=== PATIENT | female | born 1970 | race African-American/Black ===

== ENCOUNTER 2016-08-07 18:22 | Emergency (ER) | payer MEDICAID ==
[~2016-08-07] VITALS: Ht 162.6 cm; Wt 73.0 kg
[~2016-08-07 18:22] MED LIST: TRAMADOL
[2016-08-07 21:32] LABS: CLARITY URINE CLEAR (CLEAR); COLOR URINE YELLOW (YELLOW); GLUCOSE URINE NEGATIVE (NEGATIVE); KETONES URINE NEGATIVE (NEGATIVE); LEUKOCYTE ESTERASE URINE 2+ (NEGATIVE); NITRITE URINE POSITIVE (NEGATIVE); OCCULT BLOOD URINE NEGATIVE (NEGATIVE); PH URINE >=9.0 (4.5-8.0); PROTEIN URINE NEGATIVE (NEGATIVE); SPECIFIC GRAVITY URINE 1.021 (1.005-1.030)
[2016-08-07] MEDS ORDERED: ACETAMINOPHEN 325MG TABLET PO ONE (21:45)
[2016-08-07 22:12] LABS: BACTERIA URINE 3+; RBC URINE 0-2 /hpf (0-2); SQUAMOUS EPITHELIAL CELL URINE FEW /lpf (RARE/1+)
[2016-08-07 22:41] VITALS: BP 119/77
== END 2016-08-07 22:43 | disposition home or self-care (01) ==
LOC: ER 20:39
DX: K59.00 Constipation, unspecified (principal); R10.9 Unspecified abdominal pain
CPT/HCPCS: 74000; 81001; 81025; 99285

== ENCOUNTER 2016-09-27 17:51 | Emergency (ER) | payer MEDICAID ==
[~2016-09-27] VITALS: Ht 154.9 cm; Wt 55.0 kg
[2016-09-27 18:14] VITALS: BP 124/80
[2016-09-27] MEDS ORDERED: KETOROLAC 60MG/2ML VIAL IM ONE (22:00)
[2016-09-27] MEDS ORDERED: LIDOCAINE HCL 1% 20ML VIAL (Pyxis) INJ MC ONE (22:00)
[2016-09-27] MEDS ORDERED: BACITRACIN ZINC OINT UDPKT TOP ONE (22:00)
== END 2016-09-27 23:18 | disposition home or self-care (01) ==
LOC: ER 21:52
DX: S61.011A Laceration without foreign body of right thumb without damage to nail, initial encounter (principal); G61.0 Guillain-Barre syndrome; Z93.1 Gastrostomy status; W25.XXXA Contact with sharp glass, initial encounter; Y93.89 Activity, other specified; Y92.010 Kitchen of single-family (private) house as the place of occurrence of the external cause
CPT/HCPCS: 12001; 73130; 96372; 99284; J1885; J3490; X7700; Z7610

== ENCOUNTER 2016-09-29 10:17 | Emergency (ER) | payer MEDICAID ==
[~2016-09-29] VITALS: Ht 157.5 cm; Wt 55.0 kg
[2016-09-29 10:24] VITALS: BP 109/61
== END 2016-09-29 11:08 | disposition home or self-care (01) ==
LOC: ER 10:46
DX: Z48.01 Encounter for change or removal of surgical wound dressing (principal); F17.200 Nicotine dependence, unspecified, uncomplicated; Z93.1 Gastrostomy status
CPT/HCPCS: 99282; Z7610